=== PATIENT | male | born 1995 | race African-American/Black ===

== ENCOUNTER 2019-05-24 00:56 | Emergency (ER) | payer SELFPAY ==
[~2019-05-24] VITALS: Ht 182.9 cm; Wt 73.0 kg
[2019-05-24 03:09] VITALS: BP 111/66
== END 2019-05-24 06:15 | disposition home or self-care (01) ==
LOC: ER 00:56
DX: H02.843 Edema of right eye, unspecified eyelid (principal); H05.221 Edema of right orbit; Y08.89XA Assault by other specified means, initial encounter; Y93.9 Activity, unspecified; Y92.9 Unspecified place or not applicable
CPT/HCPCS: 70450; 70486; 71046; 71100; 99284; Z7610